=== PATIENT | female | born 1990 | race American Indian/Alaskan Native ===

== ENCOUNTER 2017-01-29 09:41 | Emergency (ER) | payer OTHER ==
[~2017-01-29] VITALS: Ht 167.6 cm; Wt 81.2 kg
[~2017-01-29 09:41] MED LIST: MOTRIN800 MG PO; VALTREX50 MG/ML PO; VITAFOL-OB+DHA1 EACH PO
[2017-01-29 10:51] LABS: HEMATOCRIT 36.3 % (36.0-46.0); MCH 32.9 PG (29.0-34.0); MCHC 35.3 G/DL (30.0-36.0); MCV 93.3 FL (83-99); PLATELET COUNT 225 K/uL (156-360); RBC DIS.WIDTH-CV 11.6 % (11.8-14.6); RBC DIS.WIDTH-SD 39.2 % (39-53); RED BLOOD COUNT 3.89 M/uL (3.80-5.20); WHITE BLOOD COUNT 5.4 K/uL (4.1-10.2)
[2017-01-29 11:01] LABS: ADD MIUA? NO; BILIRUBIN NEGATIVE; BLOOD NEGATIVE; COLOR YELLOW ((YELLOW)); GLUCOSE (STRIP) NEGATIVE; KETONES NEGATIVE; LEUKOCYTES NEGATIVE; NITRITE NEGATIVE; PROTEIN (STRIP) NEGATIVE; SPECIFIC GRAVITY 1.013 (1.000-1.030); UCUL ADDED? NO; UROBILINOGEN 0.2 MG/DL (0.2-1.0)
[2017-01-29 11:07] LABS: CHLORIDE 109 mEq/L (99-109); POTASSIUM 3.9 mEq/L (3.7-5.4); SODIUM 142 mEq/L (136-147)
[2017-01-29 11:09] LABS: GLUCOSE 101 mg/dL (70-99)
[2017-01-29 11:11] LABS: ANION GAP 8 MEQ/L (2-14)
[2017-01-29 11:13] LABS: ALKALINE PHOSPHATASE 60 IU/L (3-129); GFR ESTIMATE (CALCULATED) > 59 mL/min/
[2017-01-29 11:14] LABS: UREA NITROGEN (BUN) 10 mg/dL (9-23)
[2017-01-29 11:25] LABS: QUANTITATIVE HCG < 4.0 MIU/ML
[2017-01-29] MEDS ORDERED: NAPROSYN500 MG PO (14:22)
[2017-01-29] MEDS ORDERED: TRAMADOL HCL50 MG PO (14:22)
[2017-01-29 14:49] VITALS: BP 102/70
== END 2017-01-29 14:50 | disposition home or self-care (01) ==
LOC: EME 09:41
DX: N83.202 Unspecified ovarian cyst, left side (principal); R10.2 Pelvic and perineal pain; L98.9 Disorder of the skin and subcutaneous tissue, unspecified
CPT/HCPCS: 76856; 80053; 81003; 84702; 85027; 93975; 99281; 99284; J1885

== ENCOUNTER 2017-04-15 16:40 | Emergency (ER) | payer OTHER ==
[~2017-04-15] VITALS: Ht 165.1 cm; Wt 79.4 kg
[~2017-04-15 16:40] MED LIST changes: +NAPROSYN500 MG PO; +TRAMADOL HCL50 MG PO
[2017-04-15 17:31] LABS: ADD MIUA? YES; BILIRUBIN NEGATIVE; BLOOD NEGATIVE; COLOR YELLOW ((YELLOW)); GLUCOSE (STRIP) NEGATIVE; KETONES NEGATIVE; LEUKOCYTES NEGATIVE; NITRITE NEGATIVE; PROTEIN (STRIP) NEGATIVE; SPECIFIC GRAVITY 1.021 (1.000-1.030); UROBILINOGEN 0.2 MG/DL (0.2-1.0)
[2017-04-15 17:47] LABS: BACTERIA RARE /HPF; CALCIUM OXALATE CRYSTALS 1+ /HPF; EPITHELIAL CELLS 1+ /HPF; MUCUS TRACE /LPF; RED BLOOD CELLS 0-5 /HPF (0-5); UCUL ADDED? NO; WHITE BLOOD CELLS 0-5 /HPF (0-5)
[2017-04-15 18:01] LABS: HEMATOCRIT 35.3 % (36.0-46.0); MCH 32.2 PG (29.0-34.0); MCHC 35.4 G/DL (30.0-36.0); MEAN PLAT.VOLUME 9.8 uM^3 (9.5-12.4); PLATELET COUNT 258 K/uL (156-360); RBC DIS.WIDTH-CV 11.8 % (11.8-14.6); RED BLOOD COUNT 3.88 M/uL (3.80-5.20); WHITE BLOOD COUNT 6.4 K/uL (4.1-10.2)
[2017-04-15 19:39] VITALS: BP 101/65
[2017-04-17 13:56] LABS: CHLAMYDIA TRACHOMATIS NEGATIVE; NEISSERIA GONORRHOEAE NEGATIVE
== END 2017-04-15 19:40 | disposition home or self-care (01) ==
LOC: EME 16:40
PROVIDERS: Physician Assistant
DX: O26.891 Other specified pregnancy related conditions, first trimester (principal); L29.9 Pruritus, unspecified; R10.2 Pelvic and perineal pain; R10.32 Left lower quadrant pain; Z3A.09 9 weeks gestation of pregnancy
CPT/HCPCS: 76801; 81003; 84702; 85027; 87210; 87491; 87591; 99281; 99284

== ENCOUNTER 2017-09-28 03:19 | Outpatient (CLI) | payer OTHER ==
[2017-09-28] VITALS (16 sets, daily range): BP systolic 95–128; BP diastolic 50–70
[~2017-09-28] VITALS: Ht 167.6 cm; Wt 90.9 kg
[2017-09-28 04:53] LABS: APPEARANCE CLEAR ((CLEAR)); BILIRUBIN NEGATIVE; BLOOD NEGATIVE; COLOR YELLOW ((YELLOW)); GLUCOSE (STRIP) NEGATIVE; KETONES NEGATIVE; LEUKOCYTES NEGATIVE; NITRITE NEGATIVE; PROTEIN (STRIP) NEGATIVE; UCUL ADDED? NO; UROBILINOGEN 0.2 MG/DL (0.2-1.0)
[2017-09-28 04:59] LABS: SOURCE SWAB
[2017-09-28 06:17] LABS: BASOPHIL (%) 0.3 % (0-1); EOSINOPHIL (%) 1.5 % (0-5); EOSINOPHIL COUNT 0.1 K/uL (0-0.3); HEMATOCRIT 33.7 % (36.0-46.0); HEMOGLOBIN 11.7 G/DL (11.9-15.5); IMMATURE GRANULOCYTE (%) 1.9 % (0.0-0.7); LYMPHOCYTE (%) 15.8 % (15-42); LYMPHOCYTE COUNT 1.3 K/uL (1.0-2.8); MCH 34.8 PG (29.0-34.0); MCHC 34.7 G/DL (30.0-36.0); MCV 100.3 FL (83-99); MONOCYTE (%) 6.8 % (3-12); MONOCYTE COUNT 0.5 K/uL (0-0.8); NEUTROPHIL (%) 73.7 % (45-76); NEUTROPHIL COUNT 5.9 K/uL (1.8-6.4); PLATELET COUNT 178 K/uL (156-360); RBC DIS.WIDTH-CV 13.7 % (11.8-14.6); RBC DIS.WIDTH-SD 50.1 % (39-53); RED BLOOD COUNT 3.36 M/uL (3.80-5.20)
[2017-09-28 07:46] LABS: CHLORIDE 107 MEQ/L (99-109); CREATININE 0.4 MG/DL (0.6-1.3); GFR ESTIMATE (CALCULATED) > 59 mL/min/; GLUCOSE 107 mg/dL (70-99); POTASSIUM 3.9 MEQ/L (3.7-5.4); SODIUM 137 MEQ/L (136-147); UREA NITROGEN (BUN) 5 mg/dL (9-23)
[2017-09-28 09:43] LABS: BENZODIAZEPINES, URINE SCREEN Negative (200 ng/mL)
[2017-09-28] MEDS ORDERED: FISH OIL 1,0001 EA10 PO (18:03)
[2017-09-28] MEDS ORDERED: IRON325 M1 PO (18:03)
[2017-09-28 22:31] LABS: CANDIDA DNA PROBE NEGATIVE; GARDNERELLA DNA PROBE NEGATIVE; TRICHOMONAS DNA PROBE NEGATIVE
[2017-09-29 00:37] VITALS: BP 105/54
[2017-09-29 03:36] VITALS: BP 84/46
[2017-09-29 03:37] VITALS: BP 94/51
[2017-09-29 07:20] VITALS: BP 109/57
[2017-09-29 11:08] VITALS: BP 110/62
[2017-09-29 15:29] VITALS: BP 114/57
[2017-09-29] MEDS ORDERED: NIFEDIPINE10 MG PO (15:51)
== END 2017-09-29 17:52 | disposition home or self-care (01) ==
LOC: LDRP-OP 03:19 → 2WEST 03:20 → LDRP-OP 12-18 12:42
PROVIDERS: Midwife; Obstetrics & Gynecology Gynecology
DX: O60.03 Preterm labor without delivery, third trimester (principal); O40.3XX0 Polyhydramnios, third trimester, not applicable or unspecified; Z3A.32 32 weeks gestation of pregnancy; Z86.19 Personal history of other infectious and parasitic diseases
CPT/HCPCS: 59025; 80048; 80306 90; 81003; 82731; 83735; 85025; 87081; 87086; 87480; 87491; 87510; 87591; 87653; 87660; G0378; J0595; J0702; J2540; J3475; J7050; J7120

== ENCOUNTER 2017-10-14 02:54 | Outpatient (CLI) | payer OTHER ==
[~2017-10-14] VITALS: Ht 165.1 cm; Wt 93.2 kg
[~2017-10-14 02:54] MED LIST changes: +FISH OIL 1,0001 EA10 PO; +IRON325 M1 PO; +NIFEDIPINE10 MG PO
[2017-10-14 03:04] VITALS: BP 122/76
[2017-10-14 03:53] LABS: APPEARANCE CLEAR ((CLEAR)); BILIRUBIN NEGATIVE; BLOOD NEGATIVE; COLOR STRAW ((YELLOW)); GLUCOSE (STRIP) NEGATIVE; KETONES NEGATIVE; LEUKOCYTES NEGATIVE; NITRITE NEGATIVE; PROTEIN (STRIP) NEGATIVE; UCUL ADDED? NO; UROBILINOGEN 0.2 MG/DL (0.2-1.0)
[2017-10-14 05:42] VITALS: BP 93/52
[2017-10-14 06:52] VITALS: BP 118/67
== END 2017-10-14 09:14 | disposition home or self-care (01) ==
LOC: LDRP-OP 02:54 → 2WEST 02:55 → LDRP-OP 12-18 17:59
PROVIDERS: Advanced Practice Midwife
DX: O47.03 False labor before 37 completed weeks of gestation, third trimester (principal); Z3A.35 35 weeks gestation of pregnancy; O40.3XX0 Polyhydramnios, third trimester, not applicable or unspecified; O98.313 Other infections with a predominantly sexual mode of transmission complicating pregnancy, third trimester; A60.00 Herpesviral infection of urogenital system, unspecified
CPT/HCPCS: 59025; 81003; G0378; J7120

== ENCOUNTER 2017-10-29 19:05 | Inpatient (IN) | payer OTHER ==
[2017-10-29] VITALS (14 sets, daily range): BP systolic 100–147; BP diastolic 57–82
[2017-10-29 20:11] LABS: BASOPHIL (%) 0.3 % (0-1); EOSINOPHIL COUNT 0.1 K/uL (0-0.3); HEMATOCRIT 37.8 % (36.0-46.0); HEMOGLOBIN 13.3 G/DL (11.9-15.5); IMMATURE GRANULOCYTE (%) 1.6 % (0.0-0.7); LYMPHOCYTE (%) 15.2 % (15-42); LYMPHOCYTE COUNT 1.5 K/uL (1.0-2.8); MCHC 35.2 G/DL (30.0-36.0); MCV 99.5 FL (83-99); MONOCYTE (%) 6.3 % (3-12); MONOCYTE COUNT 0.6 K/uL (0-0.8); NEUTROPHIL (%) 75.6 % (45-76); NEUTROPHIL COUNT 7.3 K/uL (1.8-6.4); PLATELET COUNT 192 K/uL (156-360); RBC DIS.WIDTH-CV 13.8 % (11.8-14.6); RBC DIS.WIDTH-SD 50.1 % (39-53); WHITE BLOOD COUNT 9.7 K/uL (4.1-10.2)
[2017-10-29 20:58] LABS: AMPHETAMINE NEGATIVE (500 ng/mL); BARBITURATES NEGATIVE (200 ng/mL); BENZODIAZEPINES NEGATIVE (150 ng/mL); BUPRENORPHINE NEGATIVE (10 ng/mL); COCAINE NEGATIVE (150 ng/mL); METHADONE NEGATIVE (200 ng/mL); METHAMPHETAMINE NEGATIVE (500 ng/mL); OPIATES (MORPHINE) NEGATIVE (100 ng/mL); OXYCODONE NEGATIVE (100 ng/mL); PHENCYCLIDINE NEGATIVE (25 ng/mL); PROPOXYPHENE NEGATIVE (300 ng/mL); THC CANNABINOIDS NEGATIVE (50 ng/mL); TRICYCLIC ANTIDEPRESSANTS NEGATIVE (300 ng/mL)
[2017-10-29] MEDS ORDERED: IBUPROFEN800 MG PO (23:54)
[2017-10-30] VITALS (15 sets, daily range): BP systolic 92–136; BP diastolic 53–67
[2017-10-30 03:09] LABS: HEMATOCRIT 28.2 % (36.0-46.0); MCH 36.4 PG (29.0-34.0); MCHC 35.5 G/DL (30.0-36.0); MCV 102.5 FL (83-99); PLATELET COUNT 163 K/uL (156-360); RBC DIS.WIDTH-SD 51.8 % (39-53); RED BLOOD COUNT 2.75 M/uL (3.80-5.20); WHITE BLOOD COUNT 12.7 K/uL (4.1-10.2)
[2017-10-30 09:20] LABS: HEMATOCRIT 22.9 % (36.0-46.0); HEMOGLOBIN 7.9 G/DL (11.9-15.5); MCH 35.4 PG (29.0-34.0); MCHC 34.5 G/DL (30.0-36.0); MCV 102.7 FL (83-99); PLATELET COUNT 161 K/uL (156-360); RBC DIS.WIDTH-CV 14.1 % (11.8-14.6); RBC DIS.WIDTH-SD 52.3 % (39-53); RED BLOOD COUNT 2.23 M/uL (3.80-5.20); WHITE BLOOD COUNT 10.1 K/uL (4.1-10.2)
[2017-10-31 07:00] VITALS: BP 121/66
== END 2017-10-31 11:00 | disposition home or self-care (01) | DRG 767 ==
LOC: LDRP-OP 19:05 → 2WEST 19:07 → LDRP-OP 12-18 09:27
PROVIDERS: Advanced Practice Midwife; Obstetrics & Gynecology
DX: O72.1 Other immediate postpartum hemorrhage (principal); O99.02 Anemia complicating childbirth; D62 Acute posthemorrhagic anemia; O40.3XX0 Polyhydramnios, third trimester, not applicable or unspecified; O99.214 Obesity complicating childbirth; E66.9 Obesity, unspecified; Z3A.37 37 weeks gestation of pregnancy; Z37.0 Single live birth
CPT/HCPCS: 85025; 85027; 88305; C1755; J0690; J2210; J2250; J2270; J3010; J7120

== ENCOUNTER 2018-03-26 13:02 | Emergency (ER) | payer OTHER ==
[~2018-03-26] VITALS: Ht 167.6 cm; Wt 85.2 kg
[~2018-03-26 13:02] MED LIST changes: +IBUPROFEN800 MG PO
[2018-03-26 13:27] LABS: HEMATOCRIT 36.5 % (36.0-46.0); HEMOGLOBIN 12.7 G/DL (11.9-15.5); MCH 30.7 PG (29.0-34.0); MCHC 34.8 G/DL (30.0-36.0); MCV 88.2 FL (83-99); PLATELET COUNT 272 K/uL (156-360); RBC DIS.WIDTH-CV 14.5 % (11.8-14.6); RBC DIS.WIDTH-SD 46.2 % (39-53); RED BLOOD COUNT 4.14 M/uL (3.80-5.20); WHITE BLOOD COUNT 5.6 K/uL (4.1-10.2)
[2018-03-26 13:39] LABS: ALBUMIN 4.1 g/dL (3.2-4.8)
[2018-03-26 13:40] LABS: CHLORIDE 110 mEq/L (99-109); POTASSIUM 4.1 mEq/L (3.7-5.4); SODIUM 141 mEq/L (136-147)
[2018-03-26 13:42] LABS: GLUCOSE 91 mg/dL (70-99); TOTAL PROTEIN 6.9 g/dL (6.4-8.3)
[2018-03-26 13:44] LABS: TOTAL BILIRUBIN 1.1 mg/dL (0.0-1.0)
[2018-03-26 13:45] LABS: ALKALINE PHOSPHATASE 81 IU/L (3-129)
[2018-03-26 13:46] LABS: CREATININE 0.7 mg/dL (0.6-1.3); GFR ESTIMATE (CALCULATED) > 59 mL/min/
[2018-03-26 13:47] LABS: AST (GOT) 18 IU/L (2-34); UREA NITROGEN (BUN) 9 mg/dL (9-23)
[2018-03-26 13:48] LABS: ALT (GPT) 18 IU/L (3-49)
[2018-03-26 13:54] LABS: QUANTITATIVE HCG < 4.0 MIU/ML
[2018-03-26 14:40] LABS: APPEARANCE CLEAR ((CLEAR)); BILIRUBIN NEGATIVE; BLOOD NEGATIVE; COLOR YELLOW ((YELLOW)); GLUCOSE (STRIP) NEGATIVE; KETONES NEGATIVE; LEUKOCYTES NEGATIVE; NITRITE NEGATIVE; PROTEIN (STRIP) NEGATIVE; SPECIFIC GRAVITY 1.013 (1.000-1.030); UCUL ADDED? NO; UROBILINOGEN 0.2 MG/DL (0.2-1.0)
[2018-03-26] MEDS ORDERED: DOXYCYCLINE HY100 MG PO (15:15)
[2018-03-26 15:30] VITALS: BP 115/70
[2018-03-28 08:19] LABS: SOURCE SWAB
== END 2018-03-26 15:34 | disposition home or self-care (01) ==
LOC: EME 13:02
PROVIDERS: Emergency Medicine
DX: N73.9 Female pelvic inflammatory disease, unspecified (principal)
CPT/HCPCS: 80053; 81003; 84702; 85027; 87210; 87491; 87591; 99281; 99284; J0696